=== PATIENT | male | born 1945 | race Caucasian/White ===

== ENCOUNTER 2016-09-16 21:41 | Inpatient (IN) | payer OTHER ==
[~2016-09-16] VITALS: Ht 175.3 cm; Wt 99.0 kg
[2016-09-16 22:13] LABS: URINE BILIRUBIN 2+ (NEGATIVE); URINE BLOOD TRACE (NEGATIVE); URINE GLUCOSE (UA) NORMAL (NORMAL); URINE KETONE 1+ (NEGATIVE); URINE LEUKOCYTE ESTERASE 1+ (NEGATIVE); URINE NITRATE POSITIVE (NEGATIVE); URINE PROTEIN 2+ (NEGATIVE)
[2016-09-16 22:14] LABS: URINE BACTERIA FEW (NONE SEEN); URINE MUCUS 1+; URINE SPERM PRESENT; URINE SQUAMOUS EPITHELIAL CELL 0-10 /[HPF] (NONE SEEN)
[2016-09-16 22:20] LABS: BASO % 0.2 % (0.2-1.2); EOS # 0.1 10_X3_uL (0.0-0.5); EOS % 0.3 % (0.8-7.0); GRAN % 63.3 % (34.0-67.9); HEMATOCRIT 38.7 % (40-51); HEMOGLOBIN 13.3 g/dL (13.7-17.5); LYMPH # 2.9 10_X3_uL (1.3-3.6); LYMPH % 16.9 % (21.8-53.1); MEAN CORPUSCULAR HEMOGLOBIN 29.3 pg (27.0-33.0); MEAN CORPUSCULAR HGB CONC 34.4 g/dL (32.0-36.0); MEAN CORPUSCULAR VOLUME 85.2 fL (79-92); MEAN PLATELET VOLUME 12.6 fl (7.5-11.5); MONO # 3.4 10_X3_uL (0.3-0.8); MONO % 19.3 % (5.3-12.2); PLATELET COUNT 190 x10_3/uL (163-337); RED BLOOD COUNT 4.54 x10_6/uL (4.6-6.1); RED CELL DISTRIBUTION WIDTH 15.2 % (11.6-14.4); WHITE BLOOD COUNT 17.4 x10_3/uL (4.2-9.1)
[2016-09-16 22:37] LABS: ALKALINE PHOSPHATASE 51 U/L (50-136); ALT/SGPT 18 U/L (7.53-40.17); AST/SGOT 16 U/L (6.66-35.34); BILIRUBIN,TOTAL 0.74 mg/dL (0.0-1.0); CALCIUM 9.7 mg/dL (8.7-10.7); CARBON DIOXIDE 20 mmol/L (21-32); CREATININE 1.1 mg/dL (0.6-1.3); GLUCOSE,RANDOM 138 mg/dL (70-99); POTASSIUM 4.1 mmol/L (3.5-5.1); SODIUM 132 mmol/L (136-145); TOTAL PROTEIN 7.8 gm/dL (6.4-8.2)
[2016-09-16 22:41] LABS: BLOOD UREA NITROGEN 30 mg/dL (7-18)
[2016-09-17 07:34] LABS: BASO % 0.1 % (0.2-1.2); EOS # 0.2 10_X3_uL (0.0-0.5); EOS % 1.1 % (0.8-7.0); GRAN % 64.3 % (34.0-67.9); HEMATOCRIT 37.8 % (40-51); HEMOGLOBIN 12.8 g/dL (13.7-17.5); LYMPH % 14.2 % (21.8-53.1); MEAN CORPUSCULAR HGB CONC 33.9 g/dL (32.0-36.0); MEAN CORPUSCULAR VOLUME 85.7 fL (79-92); MEAN PLATELET VOLUME 11.8 fl (7.5-11.5); MONO # 2.8 10_X3_uL (0.3-0.8); MONO % 20.3 % (5.3-12.2); PLATELET COUNT 147 x10_3/uL (163-337); RED BLOOD COUNT 4.41 x10_6/uL (4.6-6.1); RED CELL DISTRIBUTION WIDTH 15.2 % (11.6-14.4)
[2016-09-17 07:54] LABS: URINE BILIRUBIN NEGATIVE (NEGATIVE); URINE BLOOD TRACE (NEGATIVE); URINE GLUCOSE (UA) NORMAL (NORMAL); URINE KETONE TRACE (NEGATIVE); URINE LEUKOCYTE ESTERASE TRACE (NEGATIVE); URINE NITRATE NEGATIVE (NEGATIVE); URINE PROTEIN 2+ (NEGATIVE); UROBILINOGEN NORMAL mg/dL (<1.0)
[2016-09-17 08:03] LABS: AHDL CHOLESTEROL 19 mg/dL (>40); ALBUMIN 3.7 gm/dL (3.4-5.0); ALKALINE PHOSPHATASE 61 U/L (50-136); ALT/SGPT 15 U/L (7.53-40.17); AST/SGOT 14 U/L (6.66-35.34); BILIRUBIN,TOTAL 0.78 mg/dL (0.0-1.0); BLOOD UREA NITROGEN 31 mg/dL (7-18); CALCIUM 9.4 mg/dL (8.7-10.7); CARBON DIOXIDE 23 mmol/L (21-32); CHOLESTEROL 147 mg/dL (0-200); CREATININE 1.1 mg/dL (0.6-1.3); GLUCOSE,RANDOM 138 mg/dL (70-99); LDL CHOLESTEROL 70 mg/dL (0-99); POTASSIUM 3.7 mmol/L (3.5-5.1); SODIUM 133 mmol/L (136-145); TOTAL PROTEIN 7.2 gm/dL (6.4-8.2); TRIGLYCERIDES 254 mg/dL (30-200)
[2016-09-17 08:47] LABS: URINE AMORPHOUS SEDIMENT 1+; URINE BACTERIA 1+ (NONE SEEN); URINE RBC 0-5 /[HPF] (0-2); URINE WBC >15 /[HPF] (0-3)
[2016-09-18 06:35] LABS: HEMATOCRIT 36.6 % (40-51); HEMOGLOBIN 12.4 g/dL (13.7-17.5); MEAN CORPUSCULAR HGB CONC 33.9 g/dL (32.0-36.0); MEAN CORPUSCULAR VOLUME 85.5 fL (79-92); MEAN PLATELET VOLUME 12.3 fl (7.5-11.5); RED BLOOD COUNT 4.28 x10_6/uL (4.6-6.1); RED CELL DISTRIBUTION WIDTH 15.1 % (11.6-14.4); WHITE BLOOD COUNT 9.2 x10_3/uL (4.2-9.1)
[2016-09-18 06:40] LABS: BLOOD UREA NITROGEN 25 mg/dL (7-18); CALCIUM 9.4 mg/dL (8.7-10.7); CARBON DIOXIDE 24 mmol/L (21-32); CREATININE 1.1 mg/dL (0.6-1.3); GLUCOSE,RANDOM 152 mg/dL (70-99); POTASSIUM 4.1 mmol/L (3.5-5.1); SODIUM 139 mmol/L (136-145)
[2016-09-18 08:37] LABS: URINE BILIRUBIN NEGATIVE (NEGATIVE); URINE BLOOD TRACE (NEGATIVE); URINE GLUCOSE (UA) NORMAL (NORMAL); URINE KETONE NEGATIVE (NEGATIVE); URINE LEUKOCYTE ESTERASE NEGATIVE (NEGATIVE); URINE NITRATE NEGATIVE (NEGATIVE); URINE PROTEIN TRACE (NEGATIVE); UROBILINOGEN NORMAL mg/dL (<1.0)
[2016-09-18 09:30] LABS: URINE BACTERIA TRACE (NONE SEEN); URINE RBC 0-5 /[HPF] (0-2); URINE SQUAMOUS EPITHELIAL CELL 0-10 /[HPF] (NONE SEEN); URINE TRIPLE PHOSPHATE CRYSTAL 0-2 /[HPF] (NONE SEEN); URINE WBC 0-5 /[HPF] (0-3)
== END 2016-09-19 10:46 | disposition home or self-care (01) | DRG 690 ==
LOC: ER 21:41 → MS 23:57
PROVIDERS: Internal Medicine; ADMIT Family Medicine
DX: N12 Tubulo-interstitial nephritis, not specified as acute or chronic (principal); R10.30 Lower abdominal pain, unspecified; R41.0 Disorientation, unspecified; I10 Essential (primary) hypertension; E11.9 Type 2 diabetes mellitus without complications; I25.2 Old myocardial infarction; K59.00 Constipation, unspecified; Z95.5 Presence of coronary angioplasty implant and graft; Z79.899 Other long term (current) drug therapy; Z79.4 Long term (current) use of insulin
CPT/HCPCS: 36415; 71010; 80048; 80053; 80061; 81001; 82962; 83036; 83605; 85025; 87040; 87086; 99070; 99283; 99284; J2543

== ENCOUNTER 2016-09-16 21:41 | Emergency (ER) | payer OTHER | END 2016-09-16 23:57 | disposition other institution (70) | LOC: ER 21:41 | DX: N39.0 Urinary tract infection, site not specified (principal); R41.0 Disorientation, unspecified; E11.9 Type 2 diabetes mellitus without complications; I10 Essential (primary) hypertension | CPT/HCPCS: 99283; 99284 ==